=== PATIENT | female | born 1995 | race Hispanic/Latino ===

== ENCOUNTER 2018-05-28 03:36 | Emergency (ER) | payer OTHER ==
[2018-05-28 03:58] VITALS: O2SAT 98
--- NOTE | 2018-05-28 04:25 | ED PDOC ---
Arrival/HPI - General Chief Complaint: Chest Pain Time Seen by Provider: 05/28/18 03:37 Historian: Patient - History of Present Illness Narrative History of Present Illness (Text): 05/28/18 04:25 22 year old female, whose past medical history includes bipolar disorder and bulimia, presents to the emergency department with right sided chest discomfort. Patient states she coughed a few times and hurt her chest.Discomfort with m ovement and chest excursions .Also states she vomited once small amount. Patient denies any fevers, chills, shortness of breath, abdominal pain, or any other complaints. Time/Duration: Prior to Arrival Symptom Course: Unchanged Activities at Onset: Light Context: Home Past Medical History - Provider Review Nursing Documentation Reviewed: Yes - Infectious Disease Hx of Infectious Diseases: None - Cardiac Hx Cardiac Disorders: No - Pulmonary Hx Asthma: Yes - Psychiatric Hx Anxiety: Yes Hx Bipolar Disorder: Yes Hx Substance Use: Yes (marijuana) Other/Comment: bulimia nervosa - Anesthesia Hx Anesthesia: No Family/Social History - Physician Review Nursing Documentation Reviewed: Yes Family/Social History: No Known Family HX Smoking Status: Heavy Smoker > 10 Cigarettes Daily Hx Alcohol Use: Yes Hx Substance Use: Yes (marijuana) Allergies/Home Meds Allergies/Adverse Reactions: Allergies Sulfa (Sulfonamide Antibiotics) Allergy (Verified 05/28/18 03:45) RASH Review of Systems - Physician Review All systems were reviewed & negative as marked: Yes - Review of Systems Constitutional: absent: Fevers, Night Sweats Respiratory: Cough. absent: SOB Cardiovascular: Chest Pain Gastrointestinal: Nausea, Vomiting. absent: Abdominal Pain Physical Exam Vital Signs Reviewed: Yes Vital Signs Temp Pulse Resp BP Pulse Ox 05/28/18 03:58 98.4 F 05/28/18 03:57 100 H 18 111/74 98 Blood Pressure: Normal Pulse: Regular Respiratory Rate: Normal Appearance: Positive for: Well-Appearing, Non-Toxic, Comfortable Pain Distress: Mild Mental Status: Positive for: Alert and Oriented X 3 - Systems Exam Head: Present: Atraumatic, Normocephalic Pupils: Present: PERRL Extroacular Muscles: Present: EOMI Conjunctiva: Present: Normal Mouth: Present: Moist Mucous Membranes Neck: Present: Normal Range of Motion Respiratory/Chest: Present: Clear to Auscultation, Good Air Exchange, Tender to Palpation. No: Respiratory Distress, Accessory Muscle Use Cardiovascular: Present: Regular Rate and Rhythm, Normal S1, S2. No: Murmurs Abdomen: No: Tenderness, Distention, Peritoneal Signs Back: Present: Normal Inspection Upper Extremity: Present: Normal Inspection. No: Cyanosis, Edema Lower Extremity: Present: Normal Inspection. No: Edema Neurological: Present: GCS=15, CN II-XII Intact, Speech Normal Skin: Present: Warm, Dry, Normal Color. No: Rashes Psychiatric: Present: Alert, Oriented x 3, Normal Insight, Normal Concentration Medical Decision Making ED Course and Treatment: 05/28/18 04:33 Impression: 22 year old female presents with right sided chest discomfort and nausea Plan: -- EKG -- Cardiac iso, CMP, Lipase -- CBC -- Chest X-ray -- Toradol -- Zofran -- Reassess and disposition Prior Visits: Patient has not been seen in the ER previously. Progress Notes: 05/28/18 04:33 - RAD Interpretation Narrative RAD Interpretations (Text): 05/28/18 05:33 CXR- No acute process Subcontract Manager: ED Physician - EKG Interpretation EKG Interpretation (Text): 05/28/18 05:32 EKG-NSR@ 85,no acute process Interpreted by ED Physician: Yes Type: 12 lead EKG - Scribe Statement The provider has reviewed the documentation as recorded by the Scribjoel Paredes Provider Scribe Attestation: All medical record entries made by the Scribe were at my direction and personally dictated by me. I have reviewed the chart and agree that the record accurately reflects my personal performance of the history, physical exam, medical decision making, and the department course for this patient. I have also personally directed, reviewed, and agree with the discharge instructions and disposition. Disposition/Present on Arrival - Present on Arrival Any Indicators Present on Arrival: No History of DVT/PE: No History of Uncontrolled Diabetes: No Urinary Catheter: No History of Decub. Ulcer: No History Surgical Site Infection Following: None - Disposition Have Diagnosis and Disposition been Completed?: Yes Diagnosis: Chest pain, musculoskeletal Disposition: HOME/ ROUTINE Disposition Time: 05:37 Patient Plan: Discharge Condition: GOOD Discharge Instructions (ExitCare): Chest Pain That Is Not Caused by the Heart (DC), Chest Pain (ED) Additional Instructions: Rest/no strenuous physical activity/take meds as prescribed/follow up with your doctor Prescriptions: Ibuprofen [Motrin] 400 mg PO Q6 PRN #14 tab PRN Reason: Pain, Moderate (4-7) Forms: [email or web address] ([employer])
[2018-05-28 04:43] LABS: HEMOGLOBIN 13.4 g/dL (12.0-16.0); MEAN CELL VOLUME 87.8 fl (80.0-105.0); MEAN CORPUSCULAR HEMOGLOBIN 29.1 pg (25.0-35.0); MEAN CORPUSCULAR HGB CONC 33.2 g/dl (31.0-37.0); RBC 4.6 10^6/uL (3.5-6.1); RED CELL DISTRIBUTION WIDTH 12.7 % (11.5-14.5); WHITE BLOOD COUNT 7.1 10^3/uL (4.5-11.0)
[2018-05-28 04:50] LABS: ALB/GLOB RATIO 1.5 (1.1-1.8); ALBUMIN 4.5 g/dL (3.0-4.8); ALT/SGPT 21 U/L (7-56); AST/SGOT 24 U/L (14-36); BLOOD UREA NITROGEN 10 mg/dL (7-21); CALCIUM 9.2 mg/dL (8.4-10.5); GFR NON-AFRICAN AMERICAN > 60; LIPASE 30 U/L (23-300)
[2018-05-28 05:01] LABS: TROPONIN I < 0.01 ng/mL
[2018-05-28 06:19] VITALS: BP 115/71; PULSE 84; RESP 17; TEMP 98.2
--- NOTE | 2018-05-28 12:48 | RAD ---
HISTORY: cough COMPARISON: None available. TECHNIQUE: Chest, one view. FINDINGS: LUNGS: No focal consolidation. Rounded opacity within the left upper lobe appears consistent with end of bone/costochondral cartilage. Please note that chest x-ray has limited sensitivity for the detection of pulmonary masses. PLEURA: No significant pleural effusion identified. No definite pneumothorax . CARDIOVASCULAR: Heart size appears within normal limits. No significant atherosclerotic calcification present. OSSEOUS STRUCTURES: No acute osseous abnormality identified. VISUALIZED UPPER ABDOMEN: Unremarkable. OTHER FINDINGS: None. IMPRESSION: No focal consolidation. Rounded opacity within the left upper lobe appears consistent with end of bone/costochondral cartilage. Correlate clinically.
--- NOTE | 2018-05-28 19:00 | CARD ---
APPROVED REPORT Date of service: 05/28/2018 EKG Measurement Heart [id number] <Conclusion> Normal sinus rhythm Normal ECG
== END 2018-05-28 06:19 | disposition home or self-care (01) ==
LOC: ED 03:36
DX: R07.89 Other chest pain (principal); J45.909 Unspecified asthma, uncomplicated; F41.9 Anxiety disorder, unspecified; F17.210 Nicotine dependence, cigarettes, uncomplicated
CPT/HCPCS: 71045; 80053; 82550; 83615; 83690; 84484; 85027; 93005; 96374; 96375; 99283; J1885; J2405